=== PATIENT | male | born 1985 | race African-American/Black ===

== ENCOUNTER 2019-02-10 17:01 | Emergency (ER) | payer MEDICAID ==
[~2019-02-10] VITALS: Ht 172.7 cm; Wt 104.3 kg
[~2019-02-10 17:01] MED LIST: LISINOPRIL5 MG PO; MIRALAX17 GM PO; NEURONTIN 300300 M1 PO; PANTOPRAZOLE SO40 M1 PO; PEPCID20 MG PO; PERCOCET 5-3251 EACH PO; SENOKOT-S1 TA1 PO; TRAMADOL 50 MG50 MG PO; ZOFRAN ODT4 MG PO
[2019-02-10 18:22] LABS: ABSOLUTE NEUTROPHILS 3.8 thou/uL (1.4-8.2); BASOPHILS 0.8 % (0.0-2.0); EOSINOPHILS 0.8 % (0.0-3.0); HEMATOCRIT 38.3 % (42.0-52.0); HEMOGLOBIN 12.2 gm/dL (14.0-18.0); LYMPHOCYTES 36.2 % (24.0-44.0); MCH 23.9 pg (26.0-34.0); MCHC 31.9 g/dL (28.0-37.0); PLATELET COUNT 283 thou/uL (150-400); POLYS 54.2 % (36.0-66.0); RDW 14.9 % (10.5-14.5); WBC 6.9 thou/uL (4.0-11.0)
[2019-02-10 18:34] LABS: CREATININE 0.9 mg/dL (0.7-1.3); POTASSIUM 4.2 mmol/L (3.5-5.1)
[2019-02-10 18:41] LABS: ALBUMIN 3.6 g/dL (3.4-5.0); TOTAL BILIRUBIN 0.2 mg/dL (<0.1-1.0); TOTAL PROTEIN 7.6 g/dL (6.4-8.2)
[2019-02-10 20:24] LABS: URINE BILIRUBIN NEGATIVE (Negative); URINE BLOOD NEGATIVE (Negative); URINE CLARITY CLEAR; URINE COLOR YELLOW; URINE GLUCOSE-RANDOM* NEGATIVE (Negative); URINE KETONES NEGATIVE (Negative); URINE LEUKOCYTES-REFLEX NEGATIVE (Negative); URINE NITRITE-REFLEX NEGATIVE (Negative); URINE PROTEIN (DIPSTICK) NEGATIVE (Negative); URINE UROBILINOGEN 0.2 E.U./dl (0.2-1.0)
[2019-02-10 20:33] LABS: AMP/METHAMP Negative (Negative); BARBITURATES Negative (Negative); BENZODIAZEPINES Negative (Negative); COCAINE POSITIVE (Negative); METHADONE Negative (Negative); OPIATES POSITIVE (Negative); PCP Negative (Negative)
[2019-02-10] MEDS ORDERED: NORCO 5-325 TA1 EAC1 PO (21:28)
[2019-02-10 21:51] VITALS: BP 163/83
== END 2019-02-10 21:51 | disposition home or self-care (01) ==
LOC: ER 17:01
PROVIDERS: Emergency Medicine
DX: R10.13 Epigastric pain (principal); F17.210 Nicotine dependence, cigarettes, uncomplicated; I10 Essential (primary) hypertension